=== PATIENT | female | born 1990 | race Caucasian/White ===

== ENCOUNTER 2016-11-11 17:20 | Emergency (ER) | payer BC, OTHER ==
[2016-11-11] MEDS ORDERED: Lidocaine 2% VISCOUS* 15 ML UDC PO ONE (18:07)
[2016-11-11] MEDS ORDERED: Al Hydrox/Mg Hydrox/Simet LIQ* 30 ML UDC PO ONE (18:07)
[2016-11-11 18:13] LABS: Hematocrit 45 % (35-47); Mean Corpuscular HGB Conc 34 g/dl (31-36); Mean Corpuscular Hemoglobin 28 pg (27-31); Mean Corpuscular Volume 84 fL (80-97); Mean Platelet Volume 8 um3 (7.4-10.4); Red Blood Count 5.32 10^6/ul (4.0-5.4); Red Cell Distribution Width 13 % (10.5-15); White Blood Count 10.9 10^3/ul (3.5-10.8)
[2016-11-11 18:31] LABS: ALT 44 U/L (7-52); AST 34 U/L (13-39); Albumin 4.4 g/dL (3.2-5.2); Alkaline Phosphatase 62 U/L (34-104); Anion Gap 5 mmol/L (2-11); BUN/Creatinine Ratio 17.7 (8-20); Blood Urea Nitrogen 11 mg/dL (6-24); CO2 Carbon Dioxide 29 mmol/L (22-32); Calcium 9.3 mg/dL (8.6-10.3); Chloride 101 mmol/L (101-111); EGFR African American 150.8 (>60); EGFR Non-African American 117.3 (>60); Globulin 3.1 g/dL (2-4); Glucose 87 mg/dL (70-100); Potassium 3.8 mmol/L (3.5-5.0); Sodium 135 mmol/L (133-145); Total Protein 7.5 g/dL (6.4-8.9)
--- NOTE | 2016-11-11 19:14 | RAD ---
INDICATION: Chest pain COMPARISON: None. TECHNIQUE: Single AP portable view of the chest was obtained. FINDINGS: Image quality is compromised due to the relative inferiority of a portable chest x-ray. The heart and mediastinum exhibit normal size and contour. The lungs are grossly clear. There is no evidence of a large pleural effusion. Visualized bones are normal for the patient's age. IMPRESSION: No radiographic evidence for acute cardiopulmonary abnormality on this portable chest x-ray.
--- NOTE | 2016-11-11 19:30 | ED ---
Killian Ulrich Benjamin, scribed for Meagan Elizabeth MD on 11/11/16 at 1800 . HPI Chest Pain - HPI Summary HPI Summary: 26yo female c/o sudden onset of left upper CP that started around 4:40pm that is still present. Pt describes the pain as fullness, pressure with mild burning sensation as well. Pt states that her arm and neck also feels weird. Pain was initially 4-5 but now it is 6-7 out of 10. Pt denies diaphoresis or wheezing but reports mild SOB and dizziness. Pt denies any recent long travel, oral BCP, tobacco or drug use, change in diet. Also Negative for FHx of CAD, PE, or DVT before 55, but FHx of CAD after 55 and DM. - History of Current Complaint Chief Complaint: EDChestPainROMI Time Seen by Provider: 11/11/16 17:42 Hx Obtained From: Patient Onset/Duration: Started Hours Ago - since 4:40pm, Still Present Timing: Constant Initial Severity: Mild - 4-5 Current Severity: Moderate - 6-7 Pain Intensity: 7 Pain Scale Used: 0-10 Numeric Chest Pain Location: Left Anterior Chest Pain Radiates: No Character: Burning, Pressure/Squeezing Aggravating Factor(s): Nothing Alleviating Factor(s): Nothing Associated Signs and Symptoms: Positive: Dizziness, Shortness of Breath. Negative: Weakness, Fever, Chills, Diaphoresis, Abdominal Pain - Allergy/Home Medications Allergies/Adverse Reactions: Allergies Allergy/AdvReac Type Severity Reaction Status Date / Time No Known Allergies Allergy Verified 10/08/12 02:26 PMH/Surg Hx/FS Hx/Imm Hx Endocrine/Hematology History: Denies: Hx Anticoagulant Therapy, Hx Diabetes, Hx Thyroid Disease Cardiovascular History: Denies: Hx Hypertension, Hx Pacemaker/ICD Respiratory History: Denies: Hx Asthma, Hx Chronic Obstructive Pulmonary Disease (COPD) History: Denies: Hx Renal Disease Neurological History: Denies: Hx Dementia, Hx Seizures Psychiatric History: Denies: Hx Substance Abuse Infectious Disease History: No Infectious Disease History: Denies: Hx Hepatitis, Hx Human Immunodeficiency Virus (HIV), Traveled Outside the [place] in Last 30 Days - Family History Known Family History: Positive: Cardiac Disease - [place] over 55, negative for [place] under 55 , Diabetes - Social History Occupation: Employed Full-time Lives: Alone Alcohol Use: None Substance Use Type: Reports: None Smoking Status (MU): Never Smoked Tobacco Review of Systems Constitutional: Negative Negative: Fever, Skin Diaphoresis Eyes: Negative ENT: Negative Positive: Chest Pain Positive: Shortness Of Breath. Negative: Cough Gastrointestinal: Negative Genitourinary: Negative Musculoskeletal: Negative Skin: Negative Neurological: Other - dizziness Psychological: Normal All Other Systems Reviewed And Are Negative: Yes Physical Exam Triage Information Reviewed: Yes Vital Signs On Initial Exam: Initial Vitals Temp Pulse Resp BP Pulse Ox 97.7 F 98 17 128/84 99 11/11/16 17:39 11/11/16 17:39 11/11/16 17:39 11/11/16 17:39 11/11/16 17:39 Vital Signs Reviewed: Yes Appearance: Positive: Well-Appearing, No Pain Distress, Well-Nourished Skin: Positive: Warm, Skin Color Reflects Adequate Perfusion, Dry Head/Face: Positive: Normal Head/Face Inspection Eyes: Positive: EOMI, JAIDEN ENT: Positive: Normal ENT inspection Neck: Positive: Supple, Nontender Respiratory/Lung Sounds: Positive: Clear to Auscultation, Breath Sounds Present Cardiovascular: Positive: RRR Abdomen Description: Positive: Nontender, Soft Bowel Sounds: Positive: Present Musculoskeletal: Positive: Strength/ROM Intact Neurological: Positive: Sensory/Motor Intact, Alert, Oriented to Person Place, Time, CN Intact II-III Psychiatric: Positive: Affect/Mood Appropriate - Anderson Coma Scale Coma Scale Total: 15 Diagnostics - Vital Signs Vital Signs Temp Pulse Resp BP Pulse Ox 11/11/16 17:53 88 15 100 11/11/16 17:51 99.0 F 87 18 121/80 100 11/11/16 17:39 97.7 F 98 17 128/84 99 - Laboratory Lab Results: Lab Results 11/11/16 11/11/16 11/11/16 Range/Units 18:03 18:03 18:03 WBC 10.9 H (3.5-10.8) 10^3/ul RBC 5.32 (4.0-5.4) 10^6/ul Hgb 15.0 (12.0-16.0) g/dl Hct 45 (35-47) % MCV 84 (80-97) fL MCH 28 (27-31) pg MCHC 34 (31-36) g/dl RDW 13 (10.5-15) % Plt Count 325 (150-450) 10^3/ul MPV 8 (7.4-10.4) um3 Neut % (Auto) 59.6 (38-83) % Lymph % (Auto) 31.6 (25-47) % [place] % (Auto) 5.2 (1-9) % Eos % (Auto) 2.3 (0-6) % Baso % (Auto) 1.3 (0-2) % Absolute Neuts (auto) 6.5 (1.5-7.7) 10^3/ul Absolute Lymphs (auto) 3.4 (1.0-4.8) 10^3/ul Absolute Monos (auto) 0.6 (0-0.8) 10^3/ul Absolute Eos (auto) 0.2 (0-0.6) 10^3/ul Absolute Basos (auto) 0.1 (0-0.2) 10^3/ul Absolute Nucleated RBC 0 10^3/ul Nucleated RBC % 0 Sodium 135 (133-145) mmol/L Potassium 3.8 (3.5-5.0) mmol/L Chloride 101 (101-111) mmol/L Carbon Dioxide 29 (22-32) mmol/L Anion Gap 5 (2-11) mmol/L BUN 11 (6-24) mg/dL Creatinine 0.62 (0.51-0.95) mg/dL Est GFR ( Amer) 150.8 (>60) Est GFR (Non-Af Amer) 117.3 (>60) BUN/Creatinine Ratio 17.7 (8-20) Glucose 87 (70-100) mg/dL Lactic Acid 0.8 (0.5-2.0) mmol/L Calcium 9.3 (8.6-10.3) mg/dL Total Bilirubin 0.30 (0.2-1.0) mg/dL AST 34 (13-39) U/L ALT 44 (7-52) U/L Alkaline Phosphatase 62 (34-104) U/L Troponin I 0.00 (<0.04) ng/mL Total Protein 7.5 (6.4-8.9) g/dL Albumin 4.4 (3.2-5.2) g/dL Globulin 3.1 (2-4) g/dL Albumin/Globulin Ratio 1.4 (1-3) Beta HCG, Quant < 0.60 mIU/mL Result Diagrams: 11/11/16 18:03 11/11/16 18:03 Lab Statement: Any lab studies that have been ordered have been reviewed, and results considered in the medical decision making process. - Radiology CXR Xray Interpretation: No Acute Changes Radiology Interpretation Completed By: Radiologist - EKG 1745. Cardiac Rate: NL - 73bpm EKG Rhythm: Sinus Rhythm ST Segment: Normal Ectopy: None EKG Comparison: Other - no prior EKG for comparison Re-Evaluation - Re-Evaluation First Eval Re-Evaluation Time: 19:26 Change: Improved Comment: Discussed lab and imaging results with the pt. Also discussed course of treatment and disposition, as well as follow up plans. Pt is feeling better. Chest Pain Course/Dx - Course Course Of Treatment: Reviewed pts medication and allergy lists. 26 yo female without any CAD or PE risks with cp that started one hour prior to arrival. Pt had a normal ekg and cxr and labs. She received a GI cocktail with full relief of her pain and was started on h2 hossein as an outpt. Of note pt also had normal vital signs - Diagnoses Provider Diagnoses: Chest pain Discharge - Discharge Plan Condition: Stable Disposition: HOME Prescriptions: Ranitidine TAB (NF) [Zantac TAB (NF)] 300 mg PO DAILY #14 tab Patient Education Materials: Chest Pain (ED) Referrals: No Primary Care Phys,NOPCP [Primary Care Provider] - The documentation as recorded by the Killian ness Benjamin accurately reflects the service I personally performed and the decisions made by me, Meagan Elizabeth MD.
[2016-11-11 19:38] VITALS: BP 115/82
== END 2016-11-11 19:38 | disposition home or self-care (01) ==
LOC: ED 17:20
DX: R07.9 Chest pain, unspecified (principal); R42 Dizziness and giddiness; R06.02 Shortness of breath
CPT/HCPCS: 36415; 71010; 80053; 83605; 84484; 84702; 85025; 93005; 99283; A9270-GY

== ENCOUNTER 2019-05-30 14:31 | Emergency (ER) | payer OTHER ==
[2019-05-30 16:26] VITALS: BP 126/74
--- NOTE | 2019-05-30 17:29 | UC ---
Lower Extremity/Ankle HPI - HPI Summary HPI Summary: 29-year-old female presents with complaints of right foot pain. States 3 days ago she accidentally tripped and came down on her foot causing a hyperextension injury. States she had bruising, swelling, and pain to the lateral aspect of the proximal foot. Reports that the swelling and pain have improved although she continues to have discomfort with ambulating and weightbearing. She was able to walk and bear weight on the foot immediately after and since the injury. She has used cold therapy and elevation with improvement in symptoms. Has not taken any bsdv-[id number]-mllzgro analgesics. Denies any numbness or tingling. - History of Current Complaint Chief Complaint: UCLowerExtremity Stated Complaint: FOOT INJURY Time Seen by Provider: 05/30/19 16:20 Hx Obtained From: Patient Hx Last Menstrual Period: control Pain Intensity: 3 - Allergies/Home Medications Allergies/Adverse Reactions: Allergies Allergy/AdvReac Type Severity Reaction Status Date / Time No Known Allergies Allergy Verified 05/30/19 16:26 Home Medications: Home Medications Control 1 tab PO DAILY 05/30/19 [History] PMH/Surg Hx/FS Hx/Imm Hx Previously Healthy: Yes - Denies significant PMH Other History Of: Negative For: Anticoagulant Therapy - Surgical History Surgical History: None - Family History Known Family History: Positive: Cardiac Disease - [place] over 55, negative for [place] under 55 , Diabetes - Social History Occupation: Employed Full-time Lives: Alone Alcohol Use: None Substance Use Type: None Smoking Status (MU): Never Smoked Tobacco Review of Systems All Other Systems Reviewed And Are Negative: Yes Skin: Positive: Bruising Respiratory: Positive: Negative Cardiovascular: Positive: Negative Gastrointestinal: Positive: Negative Genitourinary: Positive: Negative Musculoskeletal: Positive: Other: - See HPI Neurological/Mental Status: Positive: Negative Is Patient Immunocompromised?: No Physical Exam - Summary Physical Exam Summary: GENERAL APPEARANCE: Well developed, well nourished, alert and cooperative, and appears to be in no acute distress. CARDIAC: Normal S1 and S2. No S3, S4 or murmurs. Rhythm is regular. There is no peripheral edema, cyanosis or pallor. Extremities are warm and well perfused. Capillary refill is less than 2 seconds. Peripheral pulses intact. LUNGS: Clear to auscultation without rales, rhonchi, wheezing or diminished breath sounds. ABDOMEN: Positive bowel sounds. Soft, nondistended, nontender. No guarding or rebound. No masses or hepatosplenomegally. MUSKULOSKELETAL: ROM intact to all extremities. No joint erythema or tenderness. Normal muscular development. Normal gait. EXTREMITIES: Tenderness over the 4th and 5th metatarsals with ecchymosis noted the dorsolateral right foot. Right ankle nontender with full ROM. Circulation and sensation intact. SKIN: Skin normal color, texture and turgor with no lesions or eruptions. Triage Information Reviewed: Yes Vital Signs: Initial Vital Signs Temp 98.8 F 05/30/19 16:20 Pulse 79 05/30/19 16:20 Resp 12 05/30/19 16:20 BP 126/74 05/30/19 16:20 Pulse Ox 98 05/30/19 16:20 Vital Signs Reviewed: Yes Diagnostics - Radiology No standard instances Radiology Interpretation Completed By: Radiologist Summary of Radiographic Findings: Order Information: FOOT RIGHT 3+ VWS. Indication: Pain, edema, bruising lateral aspect RIGHT foot following hyperextension injury 3 days ago. Comparison: No relevant prior exams available on the [facility] for comparison. Technique: AP, lateral, and oblique views RIGHT foot. Report: #. Negative for fracture or articular malalignment. #. Unremarkable soft tissue contours. IMPRESSION: #. Negative exam. Lower Extremity Course/Dx - Course Course Of Treatment: 29-year-old female presents with complaints of right foot pain. States 3 days ago she accidentally tripped and came down on her foot causing a hyperextension injury. States she had bruising, swelling, and pain to the lateral aspect of the proximal foot. Reports that the swelling and pain have improved although she continues to have discomfort with ambulating and weightbearing. She was able to walk and bear weight on the foot immediately after and since the injury. She has used cold therapy and elevation with improvement in symptoms. Has not taken any xswu-fay-osrugzi analgesics. Denies any numbness or tingling. Afebrile. Vital signs stable. Patient had tenderness over the 4th and 5th metatarsals with ecchymosis noted the dorsolateral right foot. Right ankle nontender with full ROM. Circulation and sensation intact. X-ray showed no acute fracture. Reviewed results with the patient. Recommending conservative treatment for a right foot sprain including [id number] analgesics and RICE. She is to follow-up with orthopedic surgery in 7 days if symptoms are not improving. Anticipatory guidance and warning symptoms were reviewed with the patient. Verbalizes understanding and agrees with plan of care. - Differential Dx/Diagnosis Differential Diagnosis/HQI/PQRI: Contusion, Fracture (Closed), Sprain Provider Diagnosis: Right foot sprain Discharge ED - Sign-Out/Discharge Documenting (check all that apply): Patient Departure All imaging exams completed and their final reports reviewed: Yes - Discharge Plan Condition: Stable Disposition: HOME Patient Education Materials: Foot Sprain (ED) Referrals: No Primary Care Phys,NOPCP [Primary Care Provider] - Additional Instructions: The x-ray performed in the clinic today showed no evidence of a fracture. Rest the foot as much as possible. You may continue to walk and bear weight as tolerated. Apply ice to the affected area for 15-20 minutes at least 4 times a day to help with the pain and swelling. Elevate the foot to help reduce swelling. Take acetaminophen (Tylenol) or ibuprofen (Advil, Motrin) according to directions as needed for pain. Follow up with orthopedic surgery in 7 days if symptoms do not improve. Seek immediate medical attention if you have severe pain not managed with pain medication, you are unable to walk or bear any weight, develop numbness or tingling in the foot or toes, or have any worsening of symptoms. - Billing Disposition and Condition Condition: STABLE Disposition: Home
== END 2019-05-30 17:42 | disposition home or self-care (01) ==
LOC: UCEAST 14:31
DX: S93.601A Unspecified sprain of right foot, initial encounter (principal); W18.40XA Slipping, tripping and stumbling without falling, unspecified, initial encounter; Y92.9 Unspecified place or not applicable
CPT/HCPCS: 99211; G0463

== ENCOUNTER 2023-07-01 11:03 | Inpatient (IN) ==
[2023-07-01 13:21] LABS: ABS Basophils 0.2 10^3/uL (0.0-0.1); ABS Lymphocytes 1.9 10^3/uL (1.0-4.8); ABS Neutrophils 12.8 10^3/uL (1.5-7.6); ABS Nucleated RBC 0.01 10^3/ul; Hemoglobin 15.5 g/dL (11.5-14.3); Lymphocyte % 12.2 %; Mean Corpuscular Hgb Conc 34.4 g/dL (31-36); Mean Corpuscular Volume 81.6 fL (80-97); Mean Platelet Volume 7.9 fL (7.5-11.2); Nucleated Red Blood Cells % 0.1 %/100WBC (0.0-0.8); Platelet Count 401 10^3/uL (150-450); Red Blood Count 5.52 10^6/uL (3.63-4.92); Red Cell Distribution Width 15.5 % (12-17); White Blood Count 15.9 10^3/uL (3.8-11.8)
[2023-07-01 13:28] LABS: Urine Appearance Turbid; Urine Bilirubin Negative (Negative); Urine Blood Trace (Negative); Urine Color Light-Yellow; Urine Glucose Negative (Negative); Urine Ketones 1+ (Negative); Urine Nitrite Negative (Negative); Urine Protein 1+ (>=30 mg/dL) (Negative); Urine Urobilinogen Negative (Negative); Urine pH 6.5 (5.0-8.0)
[2023-07-01 13:38] LABS: Urine Bacteria 1+ /HPF (Absent); Urine Red Blood Cell Trace(0-2/hpf) /HPF (0-Trace); Urine Squamous Epithelial Cell Present /HPF (Absent); Urine White Blood Cell Trace(0-5/hpf) /HPF (0-Trace)
[2023-07-01 13:44] LABS: Urine Benzodiazepine Screen None Detected (None Detect); Urine Cannabinoids Screen Presumptive Positive (None Detect); Urine Opiates Screen None Detected (None Detect)
[2023-07-01] MEDS ORDERED: Al Hydrox/Mg Hydrox/Simet LIQ 30 ML UDC PO PRN (13:51)
[2023-07-01 14:12] LABS: ALT 19 U/L (7-52); AST 20 U/L (13-39); Acetaminophen < 15 mcg/mL; Albumin 4.8 g/dL (3.2-5.2); Albumin/Globulin Ratio 1.9 (1-3); Alcohol, S < 13 mg/dL (<13); Alkaline Phosphatase 59 U/L (35-149); Anion Gap 9 mmol/L (2-16); Blood Urea Nitrogen 8 mg/dL (6-24); C Reactive Protein < 1.00 mg/L (<8.01); CO2 Carbon Dioxide 29 mmol/L (22-32); Calcium 10.4 mg/dL (8.6-10.3); Chloride 99 mmol/L (101-111); Creatinine, Serum 0.81 mg/dL (0.51-0.95); Globulin 2.5 g/dL (2-4); Glucose 91 mg/dL (70-100); Potassium 4.1 mmol/L (3.5-5.0); Salicylate < 2.50 mg/dL (<30); Sodium 137 mmol/L (135-145); Total Bilirubin 0.6 mg/dL (0.2-1.0); Total Protein 7.3 g/dL (6.4-8.9); eGFR CKD-EPI 98.9 (>60)
[2023-07-01 14:13] LABS: HCG Pregnancy < 0.60 mIU/mL
[2023-07-01 14:23] LABS: TSH Ultra Thyroid Stim Horm 1.22 mcIU/mL (0.34-5.60)
[2023-07-02 08:07] LABS: HDL Cholesterol 35.4 mg/dL
[2023-07-02] MEDS ORDERED: OLANZapine 5 mg TAB *ODT PO PRN (11:05)
[2023-07-02] MEDS: OLANZapine 10 mg TAB*ODT PO ONE (11:21)
[2023-07-02] MEDS: OLANZapine 10 mg TAB*ODT ONE (11:23)
[2023-07-02] MEDS ORDERED: Albuterol HFA INHALER 8 gm MDI INH PRN (18:20)
[2023-07-02] MEDS: Ondansetron ODT 4 mg TAB 4 MG TAB ONE (18:37)
[2023-07-03] MEDS: Ondansetron ODT 4 mg TAB 4 MG TAB SL PRN (08:54)
[2023-07-14 10:09] VITALS: BP 124/79
== END 2023-07-14 13:30 | disposition home or self-care (01) | DRG 753 ==
LOC: ED 11:03 → EDHOLD 13:51 → BSU 15:58
PROVIDERS: ADMIT Student in an Organized Health Care Education/Training Program; ATTEND Student in an Organized Health Care Education/Training Program